=== PATIENT | male | born 1980 | race African-American/Black ===

== ENCOUNTER 2023-11-12 05:53 | Emergency (ER) | payer SELFPAY ==
[~2023-11-12] VITALS: Ht 180.3 cm; Wt 87.0 kg
[2023-11-12 06:02] VITALS: BP 117/87; PULSE 97; RESP 14; TEMP 98.1; O2SAT 97
== END 2023-11-12 07:13 | disposition left against medical advice (07) ==
LOC: ER 05:53
DX: M25.562 Pain in left knee (principal); J45.909 Unspecified asthma, uncomplicated
CPT/HCPCS: 99283